=== PATIENT | male | born 1940 | race Caucasian/White ===

== ENCOUNTER 2017-10-26 10:05 | Day surgery (SDC) | payer MEDICARE, OTHER ==
[~2017-10-26] VITALS: Ht 167.6 cm; Wt 72.5 kg
[2017-10-26] MEDS ORDERED: LACTATED RINGERS 1,000 ML IV SCH (10:49)
[2017-10-26] MEDS ORDERED: MITOMYCIN 40 MG, WATER FOR INJECTION,STERILE 40 ML in SYRINGE 1 EA INTVESIC ONE (11:00)
[2017-10-26] MEDS ORDERED: PLEASE ENTER HEIGHT AND WEIGHT MC SCH (11:00)
[2017-10-26] MEDS ORDERED: PLEASE ENTER ALLERGIES MC SCH (11:00)
[2017-10-26] MEDS ORDERED: LOSA25TA5 PO (11:24)
[2017-10-26] MEDS ORDERED: ATOR40TA78 PO (11:24)
[2017-10-26 11:25] VITALS: BP 137/75
[2017-10-26] MEDS ORDERED: HYDROmorphone 1 MG/ML, 1ML IV PRN (13:00)
[2017-10-26] MEDS ORDERED: ONDANSETRON 2MG/ML, 2ML IV PRN (13:00)
[2017-10-26] MEDS ORDERED: OXYcodone 5 MG/5 ML ORAL.SOL UDC PO PRN (13:00)
[2017-10-26] MEDS ORDERED: ALBUTEROL/IPRATROPIUM 2.5MG/0.5MG, 3 ML NPPB PRN (13:00)
[2017-10-26] MEDS ORDERED: MEPERIDINE/PF 25MG/0.5ML IVPush PRN (13:00)
[2017-10-26] MEDS ORDERED: PROMETHAZINE 25 MG/ML, 1ML IV PRN (13:00)
[2017-10-26] MEDS ORDERED: EPHEDRINE 50 MG/ML, 1ML IM PRN (13:00)
[2017-10-26] MEDS ORDERED: LABETALOL 5MG/ML, 20ML IV PRN (13:00)
[2017-10-26] MEDS ORDERED: FENTANYL PF 100 MCG/2ML ONE ×2 (13:16→14:44)
[2017-10-26] MEDS ORDERED: SUCCINYLCHOLINE 20 MG/ML, 10ML ONE (14:05)
[2017-10-26] MEDS ORDERED: ROCURONIUM 10MG/ML,5ML ONE (14:05)
[2017-10-26] MEDS ORDERED: NEOSTIGMINE 1 MG/ML, 10ML ONE (14:05)
[2017-10-26] MEDS ORDERED: ONDANSETRON 2MG/ML, 2ML ONE (14:05)
[2017-10-26] MEDS ORDERED: GLYCOPYRROLATE 0.2MG/1ML, 5ML ONE (14:05)
[2017-10-26] MEDS ORDERED: DEXAMETHASONE 4 MG/ML, 1ML ONE (14:05)
[2017-10-26] MEDS ORDERED: PROPOFOL 10 MG/ML, 20ML ONE (14:05)
[2017-10-26] MEDS ORDERED: CEFAZOLIN 1,000 MG ONE (14:05)
[2017-10-26] MEDS ORDERED: OPIUM/BELLADONNA SUPP.RECT 16.2-30 MG ONE (14:24)
[2017-10-26] MEDS ORDERED: GABAPENTIN 300 MG CAPSULE PO ONE (14:30)
[2017-10-26] MEDS ORDERED: ACETAMINOPHEN 500 MG TABLET PO ONE (14:30)
[2017-10-26] MEDS: MIDAZOLAM 1 MG/ML, 2ML IV PRN ×2 (14:40→15:15)
[2017-10-26] MEDS: FENTANYL PF 100 MCG/2ML IV PRN ×2 (14:42→15:15)
[2017-10-26] MEDS ORDERED: OXYcodone 5 MG/5 ML ORAL.SOL UDC ONE (14:44)
[2017-10-26] MEDS ORDERED: MIDAZOLAM 1 MG/ML, 2ML ONE (14:44)
[2017-10-26] MEDS ORDERED: OPIUM/BELLADONNA SUPP.RECT 16.2-30 MG PR ONE (15:00)
[2017-10-26] MEDS ORDERED: PHENAZOPYRIDINE 200 MG TABLET ONE (15:35)
== END 2017-10-26 18:41 | disposition home or self-care (01) ==
LOC: OUT 10:05
PROVIDERS: ATTEND Student in an Organized Health Care Education/Training Program
DX: D41.4 Neoplasm of uncertain behavior of bladder (principal); N32.89 Other specified disorders of bladder; I10 Essential (primary) hypertension; F15.90 Other stimulant use, unspecified, uncomplicated; E78.00 Pure hypercholesterolemia, unspecified; Z98.890 Other specified postprocedural states; Z85.828 Personal history of other malignant neoplasm of skin; Z79.899 Other long term (current) drug therapy
CPT/HCPCS: 52235; 88307; J0330; J0690; J1100; J2250; J2405; J2704; J2710; J3010; J3490; J7120; J9280